=== PATIENT | male | born 1955 | race African-American/Black ===

== ENCOUNTER 2021-07-25 19:19 | Emergency (ER) | payer MEDICARE, OTHER ==
[~2021-07-25] VITALS: Ht 167.6 cm; Wt 66.0 kg
[2021-07-25 21:30] LABS: CHLORIDE 112 mEq/L (98-107)
[2021-07-25 21:36] LABS: BASOPHILS % 1.3 % (0.0-2.0); EOSINOPHILS % 6.4 % (0.0-5.0); HEMATOCRIT. 45.6 % (42.0-52.0); HEMOGLOBIN. 15.1 g/dL (14.0-18.0); LYMPHOCYTES % 36.2 % (20.0-50.0); MEAN CORPUSCULAR HEMOGLOBIN 29.5 pg (28.0-32.0); MEAN CORPUSCULAR VOLUME 89.1 fL (80.0-94.0); MEAN PLATELET VOLUME 8.1 fl (7.4-10.4); MONOCYTES % 10.2 % (2.0-8.0); NEUTROPHILS % 45.9 % (40.0-76.0); PLATELET 229 x1000/uL (130-400); RED BLOOD CELL COUNT 5.12 mill/uL (4.7-6.1); RED CELL DISTRIBUTION WIDTH 14.4 % (11.6-14.6)
[2021-07-25] MEDS ORDERED: LIDOCAINE HCL 1% 20ML VIAL (Pyxis) INJ INFIL STA (23:17)
[2021-07-26 03:14] LABS: PARTIAL THROMBOPLASTIN TIME 29.4 sec (23.4-31.0); PROTHROMBIN TIME 10.9 sec (9.6-11.0)
[2021-07-26] MEDS ORDERED: CEPH500C2 MT (03:22)
[2021-07-26 03:45] VITALS: BP 131/82
== END 2021-07-26 03:40 | disposition home or self-care (01) ==
LOC: ER 19:19
DX: M25.062 Hemarthrosis, left knee (principal); J45.909 Unspecified asthma, uncomplicated; Z98.890 Other specified postprocedural states
CPT/HCPCS: 36415; 73562; 80053; 85025; 85610; 85651; 85730; 86140; 87070; 87205; 89050; 89060; 99284; J3490